=== PATIENT | male | born 1995 | race Caucasian/White ===

== ENCOUNTER 2018-05-14 09:09 | Emergency (ER) | payer OTHER ==
[~2018-05-14] VITALS: Ht 175.3 cm; Wt 128.6 kg
[2018-05-14 09:12] VITALS: BP 152/78; PULSE 82; RESP 20; Ht 175.3 cm; Wt 128.6 kg
--- NOTE | 2018-05-14 09:55 | ERD ---
ER Documentation Chief Complaint Chief Complaint Complains of left groin pain radiates to lower back HPI 22-year-old otherwise healthy male presents with pain that began on Monday first in his left inner thigh, he then began having pain in the left side of his lower back and now the pain is migrated to his left testicle. Denies any testicular swelling. No dysuria hematuria or frequency. Recent unprotected sex with his only. No fever. No trauma. He is ambulatory. ROS All systems reviewed and are negative except as per history of present illness. Medications Home Meds Active Scripts Ibuprofen* (Motrin*) 600 Mg Tab, 600 MG PO Q6, #30 TAB Prov:SYEDA SEWELL PA-C 05/14/18 Cyclobenzaprine Hcl* (Cyclobenzaprine Hcl*) 10 Mg Tablet, 10 MG PO BID, #15 TAB Prov:SYEDA SEWELL PA-C 05/14/18 PMhx/Soc Hx Alcohol Use: Yes Hx Substance Use: Yes Hx Tobacco Use: Yes Smoking Status: Current some day smoker FmHx Family History: No diabetes Physical Exam Vitals Vital Signs Date Temp Pulse Resp B/P (MAP) Pulse Ox O2 O2 Flow FiO2 Time Delivery Rate 05/14/18 97.4 82 20 152/78 99 09:12 (102) Physical Exam INITIAL VITAL SIGNS: Reviewed by me GENERAL: Awake, alert and oriented x 4, well appearing, nontoxic, speaking in full sentences. No acute distress HEAD: Atraumatic NECK: Supple. No masses. Full range of motion. No meningismus. No midline tenderness. EYES: EOMI. PERRL. RESPIRATORY: Clear to auscultation bilaterally. Symmetric chest wall rise. No wheezing or rales. No accessory muscle use. CV: Regular rate and rhythm. No murmurs, rubs, or gallops. ABDOMEN: Soft, non-distended. Nontender. Negative Elora. Negative McBurneys point tenderness. No CVA tenderness bilaterally. No guarding. No rebound. : No inguinal lymphadenopathy, no testicular swelling, nontender, normal external genitalia EXTREMITIES: No clubbing or cyanosis. No edema. Moving all extremities normally. BACK: No midline tenderness to palpation. No step-offs. Results 24 hrs Laboratory Tests Test 05/14/18 11:10 Bedside Urine pH (LAB) 7.0 Bedside Urine Protein (LAB) Negative Bedside Urine Glucose (UA) Negative Bedside Urine Ketones (LAB) Negative Bedside Urine Blood Negative Bedside Urine Nitrite (LAB) Negative Bedside Urine Leukocyte Esterase (L Negative Procedures/MDM Patient has what sounded like musculoskeletal pain in his left thigh and lower back however now the pain is radiated to his left testicle. He is well- appearing in no distress. He is ambulatory neurovascular intact. No urinary symptoms or symptoms consistent with sexually transmitted infection. Urine dip ordered as well as testicular ultrasound. Urine and ultrasound are negative. Likely musculoskeletal etiology and he is discharged with ibuprofen and Flexeril. Patient counseled regarding my diagnostic impression and care plan. Prior to discharge all questions answered. Pt agrees with treatment plan and un derstands strict return precautions. Pt is instructed to follow up with primary care provider within 24-48 hours. Precautionary instructions provided including instructions to return to the ER if not improving or for any worsening or changing symptoms or concerns. Departure Diagnosis: Primary Impression: Back pain Additional Impressions: Leg pain Testicle pain Condition: Stable SYEDA SEWELL PA-C May 14, 2018 09:55
[2018-05-14] MEDS ORDERED: IBUP-1542 PO (11:16)
[2018-05-14] MEDS ORDERED: CYCL10TA7 PO (11:16)
== END 2018-05-14 11:24 | disposition home or self-care (01) ==
LOC: FTE 09:09
DX: M54.5 Low back pain (principal); F17.210 Nicotine dependence, cigarettes, uncomplicated; N50.812 Left testicular pain; M79.605 Pain in left leg
CPT/HCPCS: 76870; 81003; Z7502